=== PATIENT | female | born 1945 | race Caucasian/White ===

== ENCOUNTER → 2018-07-07 | Outpatient (CLI) | payer MEDICARE | END | disposition home or self-care (01) | LOC: LAB SHORT 06:05 → LAB 06:05 → LAB FUT 07-06 08:30 | DX: E87.8 Other disorders of electrolyte and fluid balance, not elsewhere classified (principal); R10.13 Epigastric pain | CPT/HCPCS: 87338 ==

== ENCOUNTER → 2019-02-15 | Outpatient (CLI) | payer MEDICARE | END | disposition home or self-care (01) | LOC: LAB SHORT 10:13 → PLD 10:13 | DX: L82.1 Other seborrheic keratosis (principal) | CPT/HCPCS: 88305 ==

== ENCOUNTER 2021-12-15 06:41 | Day surgery (SDC) | payer MEDICARE ==
[~2021-12-15] VITALS: Ht 149.9 cm; Wt 40.6 kg
[2021-12-15] MEDS ORDERED: RISE35 PO (06:55)
[2021-12-15] MEDS ORDERED: LORA10ER (06:55)
== END 2021-12-15 08:43 | disposition home or self-care (01) ==
LOC: ORSCSDS 06:41
PROVIDERS: Ophthalmology
PROC: 08RK3JZ Replacement of Left Lens with Synthetic Substitute, Percutaneous Approach (ICD-10-PCS; principal; 2021-12-15 08:00)
DX: H25.12 Age-related nuclear cataract, left eye (principal); Z79.899 Other long term (current) drug therapy; I47.1 Supraventricular tachycardia
CPT/HCPCS: J2001; J2250; J3010; J7040; V2632

== ENCOUNTER → 2022-12-07 | Outpatient (CLI) | payer MEDICARE ==
[~2022-12-07] MED LIST: LORA10ER; RISE35 PO
[2022-12-07 13:32] LABS: Campylobacter Sp Not Detected (NOT DETECT); Plesiomonas Shigelloides Not Detected (NOT DETECT)
[2022-12-07 13:33] LABS: Adenovirus F 40/41 Not Detected (NOT DETECT); Astrovirus Not Detected (NOT DETECT); Cryptosporidium Not Detected (NOT DETECT); Cyclospora Cayetanensis Not Detected (NOT DETECT); E. Coli O157 Not Detected (NOT DETECT); Entamoeba Histolytica Not Detected (NOT DETECT); Enteroaggregative E. coli-EAEC Not Detected (NOT DETECT); Enteropathogenic E. coli-EPEC Not Detected (NOT DETECT); Enterotoxigenic E. coli-ETEC Not Detected (NOT DETECT); Giardia Lamblia Not Detected (NOT DETECT); Norovirus GI/GII Detected (NOT DETECT); Rotavirus A Not Detected (NOT DETECT); Salmonella Sp Not Detected (NOT DETECT); Sapovirus Not Detected (NOT DETECT); Shiga Toxin-prod E. coli-STEC Not Detected (NOT DETECT); Shigella/Enteroin E. coli-EIEC Not Detected (NOT DETECT); Vibrio Cholerae Not Detected (NOT DETECT); Vibrio Sp Not Detected (NOT DETECT); Yersinia Enterocolitica Not Detected (NOT DETECT)
== END | disposition home or self-care (01) ==
LOC: LAB 08:26 → LAB SHORT 08:26
PROVIDERS: Family Medicine
DX: R19.7 Diarrhea, unspecified (principal); R11.10 Vomiting, unspecified
CPT/HCPCS: 87507

== ENCOUNTER → 2022-12-08 | Outpatient (CLI) | payer MEDICARE | LOC: LAB SHORT 13:07 → LAB 13:07 | DX: R11.10 Vomiting, unspecified (principal); R19.7 Diarrhea, unspecified | CPT/HCPCS: 87177; 87209 ==